=== PATIENT | male | born 1970 | race Caucasian/White ===

== ENCOUNTER → 2018-02-16 | Outpatient (CLI) | payer OTHER ==
--- NOTE | 2018-02-16 14:46 | XR ---
EXAMINATION TYPE: XR knee 4V LT DATE OF EXAM: 02/16/2018 COMPARISON: NONE HISTORY: Pain TECHNIQUE: 4 views FINDINGS: I see no fracture nor dislocation. Joint spaces are normal. There is no sign of knee joint effusion. IMPRESSION: Negative left knee exam.
== END | disposition home or self-care (01) ==
LOC: RADXRMAIN 13:57
PROVIDERS: ATTEND Family Medicine
DX: M25.562 Pain in left knee (principal)

== ENCOUNTER 2018-12-04 13:55 | Emergency (ER) | payer OTHER ==
[2018-12-04] MEDS ORDERED: SODIUM CHLORIDE 0.9% 1,000 ML IV STA (14:39)
[2018-12-04] MEDS ORDERED: ACETAMINOPHEN TAB 325 MG TAB PO STA (14:40)
[2018-12-04 15:01] LABS: Basophils % (A) 0 %; Eosinophils # (A) 0.2 k/uL (0-0.7); Eosinophils % (A) 2 %; HCT 42.5 % (39.0-53.0); HGB 14.5 gm/dL (13.0-17.5); Lymphocytes # (A) 2.3 k/uL (1.0-4.8); Lymphocytes % (A) 23 %; MCH 29.8 pg (25.0-35.0); MCV 87.7 fL (80.0-100.0); Mean Platelet Volume 6.7; Monocytes # (A) 0.7 k/uL (0-1.0); Monocytes % (A) 7 %; Neutrophils # (A) 6.7 k/uL (1.3-7.7); Neutrophils % (A) 66 %; Platelet Count 215 k/uL (150-450); RBC 4.85 m/uL (4.30-5.90); RDW 13.8 % (11.5-15.5); WBC 10.1 k/uL (3.8-10.6)
[2018-12-04 15:08] LABS: ALT 12 U/L (21-72); AST 15 U/L (17-59); African American GFR (CKD) >90 (>60 ml/min/1.73 sqM); Albumin 4.1 g/dL (3.5-5.0); Alkaline Phosphatase 73 U/L (38-126); Anion Gap 6 mmol/L; Blood Urea Nitrogen 4 mg/dL (9-20); Calcium 9.8 mg/dL (8.4-10.2); Carbon Dioxide 28 mmol/L (22-30); Chloride 96 mmol/L (98-107); Glucose 83 mg/dL (74-99); Potassium 4.7 mmol/L (3.5-5.1); Sodium 130 mmol/L (137-145); Total Bilirubin 0.6 mg/dL (0.2-1.3); Total Protein 6.7 g/dL (6.3-8.2)
--- NOTE | 2018-12-04 15:10 | ED ---
General Adult HPI - General Chief complaint: Abdominal Pain Stated complaint: abdominal pain Time Seen by Provider: 12/04/18 14:25 Source: patient, RN notes reviewed, old records reviewed Mode of arrival: ambulatory Limitations: no limitations - History of Present Illness Initial comments: 48-year-old male patient presents to ED with 4 days of diarrhea, one day of left lower quadrant, suprapubic pain. She reports nausea without emesis. Patient denies any previous history of intra-abdominal surgeries or diverticulitis. Denies any chest pain or shortness of breath. Systemic: Pt denies fatigue, fever/chills, rash. Pt denies weakness, night sweats, weight loss. Neuro: Pt denies headache, visual disturbances, syncope or pre-syncope. HEENT: Pt denies ocular discharge or irritation, otalgia, rhinorrhea, pharyngitis or notable lymphadenopathy. Cardiopulmonary: Pt denies chest pain, SOB, heart palpitations, dyspnea on exertion. Abdominal/GI: Pt denies emesis. : Pt denies dysuria, burning w/ urination, frequency/urgency. Denies new onset urinary or bowel incontinence. MSK: Pt denies myalgia, loss of strength or function in extremities. Neuro: Pt denies new onset weakness, paresthesias. - Related Data Home Medications Medication Instructions Recorded Confirmed Ginseng 100 mg PO BID 03/07/16 03/07/16 Nicotine 14Mg/24Hr Patch [Habitrol] 1 patch TRANSDERM DAILY 03/07/16 03/07/16 Venlafaxine HCl [Effexor] 75 mg PO BID 03/07/16 03/07/16 Previous Rx's Medication Instructions Recorded LORazepam [Ativan] 1 mg PO Q8HR PRN #60 tab 03/09/16 Multivitamins, Thera [Multivitamin 1 each PO 1200 tab 03/09/16 (formulary)] Nicotine 14Mg/24Hr Patch [Habitrol] 1 patch TRANSDERM DAILY #30 patch 03/09/16 Tiotropium 18 Mcg/Puff [Spiriva] 1 puff INHALATION RT-DAILY #1 03/09/16 inhaler Venlafaxine HCl [Effexor] 75 mg PO BID #60 tab 03/09/16 traZODone HCL [Desyrel] 150 mg PO HS #90 tab 03/09/16 Amoxicillin/Potassium Clav 1 each PO Q12HR #20 tab 12/04/18 [Augmentin 875-125 Tablet] Allergies Allergy/AdvReac Type Severity Reaction Status Date / Time No Known Allergies Allergy Verified 12/04/18 14:16 Review of Systems ROS Statement: Those systems with pertinent positive or pertinent negative responses have been documented in the HPI. ROS Other: All systems not noted in ROS Statement are negative. Past Medical History Past Medical History: No Reported History History of Any Multi-Drug Resistant Organisms: None Reported Past Surgical History: Tonsillectomy Past Psychological History: Anxiety, Depression Smoking Status: Current every day smoker Past Alcohol Use History: None Reported Past Drug Use History: Marijuana General Exam - General Exam Comments Initial Comments: Constitutional: NAD, AOX3, Pt has pleasant affect. HEENT: NC/AT, trachea midline, neck supple, no lymphadenopathy. Posterior pharynx non erythematous, without exudates. External ears appear normal, without discharge. Mucous membranes moist. Eyes PERRLA, EOM intact. There is no scleral icterus. No pallor noted. Cardiopulmonary: RRR, no murmurs, rubs or gallops, no JVD noted. Lungs CTAB in anterior and posterior lorenz. No peripheral edema. Abdominal exam: Abdomen soft and non-distended. Abdomen mildly tender to palpation left lower quadrant, no guarding or rigidity.. Bowel sounds active in LLQ. No hepatosplenomegaly. No ecchymosis Neuro: CN II-XII grossly intact. No nuchal rigidity. No raccon eyes, no levine sign, no hemotympanum. No cervical spinal tenderness. MSK: No posterior calf tenderness bilaterally, homans sign negative bilaterally. Posterior tibialis and radial pulse +2 bilaterally. Sensation intact in upper and lower extremities. Full active ROM in upper and lower extremities, 5/5 stregnth. Limitations: no limitations Course Vital Signs 12/04/18 14:14 Temperature 98.3 F Pulse Rate 99 Respiratory 20 Rate Blood Pressure 132/82 O2 Sat by Pulse 96 Oximetry Medical Decision Making - Medical Decision Making 48-year-old male patient presents ED chief complaint of one day of left lower quadrant pain, 4 days of diarrhea. Patient vital signs stable, afebrile. Physical exam displayed mild left lower quadrant tenderness. Laboratory investigations noncompressive. CT abdomen and pelvis display acute left-sided diverticulitis, uncomplicated. Findings were discussed in depth with patient. Patient will be discharged with oral antibiotics and outpatient follow-up with primary care provider and gastroenterology teacher. Return precuations discussed. Pt does have appointment with PCP tomorrow at 8am. Case discussed in depth with Dr. Frederick. - Lab Data Result diagrams: 12/04/18 14:39 12/04/18 14:39 Lab Results 12/04/18 12/04/18 12/04/18 Range/Units 14:39 14:39 14:39 WBC 10.1 (3.8-10.6) k/uL RBC 4.85 (4.30-5.90) m/uL Hgb 14.5 (13.0-17.5) gm/dL Hct 42.5 (39.0-53.0) % MCV 87.7 (80.0-100.0) fL MCH 29.8 (25.0-35.0) pg MCHC 34.0 (31.0-37.0) g/dL RDW 13.8 (11.5-15.5) % Plt Count 215 (150-450) k/uL Neutrophils % 66 % Lymphocytes % 23 % Monocytes % 7 % Eosinophils % 2 % Basophils % 0 % Neutrophils # 6.7 (1.3-7.7) k/uL Lymphocytes # 2.3 (1.0-4.8) k/uL Monocytes # 0.7 (0-1.0) k/uL Eosinophils # 0.2 (0-0.7) k/uL Basophils # 0.0 (0-0.2) k/uL Sodium 130 L (137-145) mmol/L Potassium 4.7 (3.5-5.1) mmol/L Chloride 96 L (98-107) mmol/L Carbon Dioxide 28 (22-30) mmol/L Anion Gap 6 mmol/L BUN 4 L (9-20) mg/dL Creatinine 0.71 (0.66-1.25) mg/dL Est GFR (CKD-EPI)AfAm >90 (>60 ml/min/1.73 sqM) Est GFR (CKD-EPI)NonAf >90 (>60 ml/min/1.73 sqM) Glucose 83 (74-99) mg/dL Plasma Lactic Acid Vicente 1.0 (0.7-2.0) mmol/L Calcium 9.8 (8.4-10.2) mg/dL Total Bilirubin 0.6 (0.2-1.3) mg/dL AST 15 L (17-59) U/L ALT 12 L (21-72) U/L Alkaline Phosphatase 73 (38-126) U/L Total Protein 6.7 (6.3-8.2) g/dL Albumin 4.1 (3.5-5.0) g/dL Lipase 29 (23-300) U/L Urine Color Urine Appearance (Clear) Urine pH (5.0-8.0) Ur Specific [place] (1.001-1.035) Urine Protein (Negative) Urine Glucose (UA) (Negative) Urine Ketones (Negative) Urine Blood (Negative) Urine Nitrite (Negative) Urine Bilirubin (Negative) Urine Urobilinogen (<2.0) mg/dL Ur Leukocyte Esterase (Negative) Urine RBC (0-5) /hpf Urine WBC (0-5) /hpf Urine Mucus (None) /hpf 12/04/18 Range/Units 15:15 WBC (3.8-10.6) k/uL RBC (4.30-5.90) m/uL Hgb (13.0-17.5) gm/dL Hct (39.0-53.0) % MCV (80.0-100.0) fL MCH (25.0-35.0) pg MCHC (31.0-37.0) g/dL RDW (11.5-15.5) % Plt Count (150-450) k/uL Neutrophils % % Lymphocytes % % Monocytes % % Eosinophils % % Basophils % % Neutrophils # (1.3-7.7) k/uL Lymphocytes # (1.0-4.8) k/uL Monocytes # (0-1.0) k/uL Eosinophils # (0-0.7) k/uL Basophils # (0-0.2) k/uL Sodium (137-145) mmol/L Potassium (3.5-5.1) mmol/L Chloride (98-107) mmol/L Carbon Dioxide (22-30) mmol/L Anion Gap mmol/L BUN (9-20) mg/dL Creatinine (0.66-1.25) mg/dL Est GFR (CKD-EPI)AfAm (>60 ml/min/1.73 sqM) Est GFR (CKD-EPI)NonAf (>60 ml/min/1.73 sqM) Glucose (74-99) mg/dL Plasma Lactic Acid Vicente (0.7-2.0) mmol/L Calcium (8.4-10.2) mg/dL Total Bilirubin (0.2-1.3) mg/dL AST (17-59) U/L ALT (21-72) U/L Alkaline Phosphatase (38-126) U/L Total Protein (6.3-8.2) g/dL Albumin (3.5-5.0) g/dL Lipase (23-300) U/L Urine Color Dark Yellow Urine Appearance Cloudy (Clear) Urine pH 6.5 (5.0-8.0) Ur Specific [place] 1.025 (1.001-1.035) Urine Protein Trace H (Negative) Urine Glucose (UA) Negative (Negative) Urine Ketones Trace H (Negative) Urine Blood Negative (Negative) Urine Nitrite Negative (Negative) Urine Bilirubin Negative (Negative) Urine Urobilinogen 4.0 (<2.0) mg/dL Ur Leukocyte Esterase Negative (Negative) Urine RBC 1 (0-5) /hpf Urine WBC 1 (0-5) /hpf Urine Mucus Occasional H (None) /hpf Disposition Clinical Impression: Acute diverticulitis Disposition: HOME SELF-CARE Condition: Stable Instructions (If sedation given, give patient instructions): Diverticulitis (ED) Additional Instructions: Patient to adhere to previously discussed treatment plan and will take medication(s) as directed. Patient to follow up with PCP in 1-2 days. Patient to return to ED if symptoms do not improve. Follow-up with primary care provider and gastroenterology teacher tomorrow. Return to ER if condition worsens. Take medication as directed. Prescriptions: Amoxicillin/Potassium Clav [Augmentin 875-125 Tablet] 1 each PO Q12HR #20 tab Is patient prescribed a controlled substance at d/c from ED?: No Referrals: Duran Kapadia MD [Primary Care Provider] - 1-2 days Itzel Marcum MD [STAFF PHYSICIAN] - 1-2 days
--- NOTE | 2018-12-04 15:39 | CT ---
EXAMINATION TYPE: CT abdomen pelvis w con DATE OF EXAM: 12/04/2018 COMPARISON: None HISTORY: Left lower quadrant pain. CT DLP: 1057.4 mGycm Automated exposure control for dose reduction was used. CONTRAST: CT scan of the abdomen pelvis is performed with IV Contrast, patient injected with 100 mL of Isovue 3 00. FINDINGS- LUNG BASES-subsegmental changes involving the lung bases most likely the basis of atelectasis.. LIVER/GB-subcentimeter hypodensity within the left lobe of the liver and near the dome of the liver t oo small to characterize. No gallstones.. PANCREAS- No gross abnormality is seen. SPLEEN- No gross abnormality is seen. ADRENALS- No gross abnormality is seen. KIDNEYS/BLADDER- no hydronephrosis nephrolithiasis or renal mass. BOWEL-there is pericolonic inflammatory change within the left colon with diverticula seen in a patte rn compatible with acute diverticulitis. No free air. Small amount of fluid in the left paracolic gut ter. Bowel gas pattern nonspecific. Appendix normal.. LYMPH NODES- No greater than 1cm abdominal or pelvic lymph nodes areappreciated. OSSEOUS STRUCTURES- No significant abnormality is seen. OTHER- aorta of normal caliber. IMPRESSION- 1. Acute left-sided diverticulitis.
[2018-12-04 15:52] LABS: Appearance,Urine Cloudy (Clear); Bilirubin,Urine Negative (Negative); Blood,Urine Negative (Negative); Color,Urine Dark Yellow; Glucose,Urine (UA) Negative (Negative); Ketones,Urine Trace (Negative); Leukocyte Esterase,Urine Negative (Negative); Mucus,Urine Occasional /hpf; Nitrite,Urine Negative (Negative); PH, Urine 6.5 (5.0-8.0); Protein,Urine Trace (Negative); RBC,Urine 1 /hpf (0-5); Specific Gravity,Urine 1.025 (1.001-1.035); WBC,Urine 1 /hpf (0-5)
[2018-12-04] MEDS ORDERED: AMOXIC-POT CLAV 875-125MG 1 EACH TAB PO STA (16:00)
[2018-12-04] MEDS ORDERED: AMOXIC-POT CLAV 875MG STARTER 2 EACH TABLET PO STA (16:00)
[2018-12-04 16:33] VITALS: BP 135/83; PULSE 71; RESP 16; TEMP 98.2
== END 2018-12-04 16:30 | disposition home or self-care (01) ==
LOC: EC 13:55
DX: K57.92 Diverticulitis of intestine, part unspecified, without perforation or abscess without bleeding (principal); F32.9 Major depressive disorder, single episode, unspecified; F41.9 Anxiety disorder, unspecified; F17.200 Nicotine dependence, unspecified, uncomplicated; Z79.899 Other long term (current) drug therapy
CPT/HCPCS: 36415; 80053; 83605; 83690; 85025; 81001; 74177; 99284; 96360; Q9967

== ENCOUNTER → 2020-07-28 | Outpatient (CLI) | payer OTHER ==
--- NOTE | 2020-07-28 17:09 | CONS ---
CONSULTATION DATE OF SERVICE: 07/28/2020 REASON FOR CONSULTATION: 50-year-old gentleman who has been evaluated in [facility] for possible obstructive sleep apnea-hypopnea syndrome. HISTORY OF PRESENT ILLNESS SLEEP-WAKE IN EVALUATION: SLEEP SCHEDULE: Patient usual sleep schedule from 9 to 4 a.m. on weekdays and on weekends he does not have any regular sleep schedule. FALLING ASLEEP: Sometimes he does have problems with falling asleep. He has a TV set in bedroom. DURING SLEEP: He usually sleeps on the side position. He snores and possibly has episodes of stopped breathing during sleep. He has a positive history of occasional urination into bed. Questionable history of sleepwalking, panic attack, grinding teeth, sleep talking, sweating, wakes up from sleep 2 times with nocturia. During the night, sometimes he sits up in his bed. No history of hypnagogic hallucinations, sleep paralysis or cataplexy. DURING THE DAY/SLEEP WAKE EVALUATION: During the day, he feels significantly sleepy. His [place] Sleepiness Scale in the range of 18. He may take one nap. He drinks more than 4 cups of caffeinated beverages during the day. PAST MEDICAL HISTORY: Positive for hypertension, COPD, bipolar, ringing in the ears. PAST SURGICAL HISTORY: Tonsillectomy. MEDICATIONS: Lorazepam 1 mg at bedtime. Venlafaxine, Depakote. Patient takes 1 more medication, which she does not remember the name. SOCIAL HISTORY: Positive for smoking 1-1/2 pack a day for about 32 years. Patient continues to smoke. Alcohol consumption: None at the present time. REVIEW OF SYSTEMS: Difficulties paying attention, problems in the memory, concentration, irritability, depression, anxiety, problems with the sexual dysfunction. PHYSICAL EXAMINATION: GENERAL: gentleman without distress. BP 138/92, HR 87, RR 15, height 6 feet 4 inches, weight 262.5, temperature 98.2. Oxygen saturation at room air 99%. Oropharynx: Mallampati 2-3, wide neck, 17.5 inches in circumference. NECK: Supple, no JVD. Thyroid is not palpable. LUNGS: Clear to percussion and to auscultation. Good air exchange. No wheezing or rhonchi. HEART: S1, S2 regular. No murmurs, gallops, or rubs. ABDOMEN: Soft and nontender. Bowel sounds are present. No organomegaly appreciated. EXTREMITIES: No clubbing or cyanosis. COBOL MAINFRAME DEVELOPER: Awake, alert, and oriented X3. Cranial nerves 2 to 7 intact. There is no fasciculation or atrophy. noted. No focal deficits observed. IMPRESSION: 1. Snoring, awakenings from sleep with possibly episodes of gasping for air and stopped breathing. Wide neck, 7.5 inches in circumference, significant excessive daytime sleepiness, obstructive sleep apnea-hypopnea syndrome. 2. Episodes of bed wetting. 3. Significant excessive daytime sleepiness. [place] Sleepiness Scale 18 dictate necessity to include narcolepsy in differential diagnosis. 4. History of smoking for more than 45 pack years. 5. History of chronic obstructive pulmonary disease. 6. History of bipolar. 7. History of tinnitus. 8. Status post tonsillectomy. PLAN: 1. Polysomnography for evaluation of patient's breathing during sleep and also to check for possibility of parasomnia. 2. CPAP/BiPAP titration if sleep study confirms obstructive sleep apnea-hypopnea syndrome. 3. Preferable position during sleep on the side. 4. No driving if patient feels any sleepiness. 5. I will see patient for follow up visit to explain results of testing and following plan. Thank you very much for referring this patient for consultation. Sincerely, Dimitri Silveira MD, PhD, FAASM Diplomat of [employer] [facility] [facility] [place] MMODL / JESSICAN: [id number] /
== END ==
LOC: SLEEP 13:28
PROVIDERS: ATTEND Internal Medicine
DX: G47.33 Obstructive sleep apnea (adult) (pediatric) (principal); N39.44 Nocturnal enuresis; J44.9 Chronic obstructive pulmonary disease, unspecified; I10 Essential (primary) hypertension; F17.210 Nicotine dependence, cigarettes, uncomplicated; F31.9 Bipolar disorder, unspecified; Z98.890 Other specified postprocedural states
CPT/HCPCS: 99211

== ENCOUNTER → 2021-01-04 | Outpatient (CLI) | payer OTHER ==
--- NOTE | 2021-01-05 04:35 | MR ---
EXAMINATION TYPE: MR foot LT wo con DATE OF EXAM: 01/04/2021 COMPARISON: None HISTORY: Left foot/ankle pain, swelling and clicking x2.5 months Multiplanar multiecho imaging of the left foot without contrast. On the T1 images there is abnormal decreased signal in the mid foot involving the tarsal bones. There is involvement of the cuboidal and cuneiform bones in the anterior navicular bone. This is consisten t with diffuse edema. There is areas have increased signal on the STIR images. There is also abnormal signal loss on the T1 images in the proximal second third and fourth metatarsals. The Achilles tendon is intact. Plantar fascia appears intact. There is diffuse soft tissue edema of t he midfoot. Subcutaneous edema on the dorsum of the foot. I see no fracture line. There is some incre ased joint fluid seen around the plantar aspect of the mid tarsal bones. IMPRESSION: No fracture seen. Multiple bones of the foot show evidence of edema that could be stress related phen omenon and multiple bone bruises. No definite fracture line seen. There is increased joint fluid cons istent with nonspecific synovitis...
== END | disposition home or self-care (01) ==
LOC: RADMRIMAIN 18:28
PROVIDERS: ATTEND Orthopaedic Surgery
DX: R60.0 Localized edema (principal)